=== PATIENT | female | born 1990 | race African-American/Black ===

== ENCOUNTER 2016-12-13 20:09 | Emergency (ER) | payer OTHER ==
[~2016-12-13] VITALS: Ht 170.2 cm; Wt 65.8 kg
[2016-12-13 22:02] VITALS: BP 126/94
== END 2016-12-13 22:02 | disposition home or self-care (01) ==
LOC: EME 20:09
DX: F13.239 Sedative, hypnotic or anxiolytic dependence with withdrawal, unspecified (principal); J45.909 Unspecified asthma, uncomplicated; F41.9 Anxiety disorder, unspecified
CPT/HCPCS: 99281; 99284; J1885